=== PATIENT | male | born 1960 | race Caucasian/White ===

== ENCOUNTER → 2019-12-21 | Outpatient (CLI) | payer OTHER ==
--- NOTE | 2019-12-21 09:12 | RAD ---
KNEE RIGHT 3V 12/21/2019 8:06 AM INDICATION: Knee pain COMPARISON: None available. TECHNIQUE: 3 views the right knee are provided. FINDINGS/ IMPRESSION: No significant knee joint effusion. There is no acute fracture or dislocation. Joint spaces are maintained. Bone mineralization is within normal limits. Regional soft tissues are within normal limits. There is no soft tissue gas or osseous erosion. No radiopaque foreign body. Electronically signed by: Rosalba Fitzgerald MD (12/21/2019 9:09 AM) [email or web address]
== END ==
LOC: RAD 08:00
PROVIDERS: ATTEND Physician Assistant
DX: M25.561 Pain in right knee (principal)
CPT/HCPCS: 73562